=== PATIENT | female | born 1995 | race Caucasian/White ===

== ENCOUNTER 2018-09-12 12:07 | Day surgery (SDC) | payer OTHER ==
[2018-09-11 13:18] VITALS: BMI 24.5
--- NOTE | 2018-09-13 10:17 | OP ---
DATE OF PROCEDURE: 09/12/2018 PREPROCEDURE DIAGNOSES: 1. Intermittent loose stools with mucus. 2. Intermittent rectal bleeding. 3. Normal CBC. 4. Negative celiac serologies. POSTPROCEDURE DIAGNOSES: 1. Mild erythema sigmoid, likely bowel effect. No overt signs of Crohn's or proctitis or neoplasia. 2. Suspect bleeding from rectal outlet. PROCEDURE PERFORMED: Colonoscopy with biopsy of sigmoid colon. RECOMMENDATIONS: 1. Await pathology. 2. High-fiber diet. 3. Bentyl p.r.n. for cramping. 4. Followup in the office 1 month for biopsy results. ANESTHESIA: TIVA. DESCRIPTION OF PROCEDURE: The patient was informed of the risks, benefits, and possible complications of the endoscopy including perforation, bleeding, reaction to medication, aspiration, informed consent was obtained. The patient was brought into the endoscopy suite where she was sedated in gradual fashion. Once she was comfortable, a rectal exam was performed. Endoscope was advanced through the anal canal, through the colon, through the cecum. The cecum was identified by the ileocecal valve and the appendiceal orifice. There was no evidence of inflammatory bowel disease or inflammation, ulcers, erosions in the ileum, cecum, ascending, transverse, descending, or sigmoid colon. There was mild erythema in the sigmoid colon, it was felt somewhat related to bowel artifact. Biopsies were taken. The retroflexed views in the rectum were normal. The scope was removed. The patient tolerated the procedure well without complications. Job ID: [id number]
== END 2018-09-12 15:35 | disposition home or self-care (01) ==
LOC: SDC 12:07
PROVIDERS: ATTEND Internal Medicine Gastroenterology
PROC: 0DBN8ZX Excision of Sigmoid Colon, Via Natural or Artificial Opening Endoscopic, Diagnostic (ICD-10-PCS; principal; 2018-09-12)
DX: K62.5 Hemorrhage of anus and rectum (principal); R19.7 Diarrhea, unspecified; R19.5 Other fecal abnormalities; F41.9 Anxiety disorder, unspecified; Z79.899 Other long term (current) drug therapy; Z80.0 Family history of malignant neoplasm of digestive organs
CPT/HCPCS: 88305

== ENCOUNTER 2018-09-14 12:34 | Emergency (ER) | payer OTHER ==
--- NOTE | 2018-09-14 13:43 | RAD ---
FOUR VIEWS RIGHT KNEE: HISTORY: Fall with twisting injury. Pain. FINDINGS: Joint spaces are preserved. No fracture or malalignment. No joint effusion. IMPRESSION: No posttraumatic change. POS: BAKARI
== END 2018-09-14 14:08 | disposition home or self-care (01) ==
LOC: ERS 12:34
DX: S83.411A Sprain of medial collateral ligament of right knee, initial encounter (principal); F41.9 Anxiety disorder, unspecified; X50.1XXA Overexertion from prolonged static or awkward postures, initial encounter

== ENCOUNTER 2018-09-28 08:30 | Outpatient (CLI) | payer OTHER ==
--- NOTE | 2018-09-28 15:49 | RAD ---
SMALL BOWEL FOLLOW THROUGH: CLINICAL HISTORY: Irritable bowel syndrome, abdominal pain with intermittent diarrhea, 23-year-old female. FINDINGS: Rapid transit of contrast is noted, passing into the colon by 50 minute image. The contrast-opacifie d small bowel is normal in caliber and demonstrates an appropriate mucosal pattern. Opacified gastri c lumen is unremarkable. Spot fluoroscopic imaging performed which reveals no abnormal tethering or stricturing of the small bowel. IMPRESSION: 1. Rapid transit time with contrast entering the colon by 50 minute image. 2. No discrete small bowel pathology evident. POS: BAKARI
== END 2018-09-28 08:31 | disposition home or self-care (01) ==
LOC: RAD 08:30
PROVIDERS: ATTEND Internal Medicine Gastroenterology
DX: K58.0 Irritable bowel syndrome with diarrhea (principal)
CPT/HCPCS: 74250

== ENCOUNTER 2021-06-24 14:27 | Outpatient (CLI) | payer BC | END 2021-06-24 14:28 | disposition home or self-care (01) | LOC: BICCT 14:27 | PROVIDERS: ATTEND Family Medicine | DX: M47.816 Spondylosis without myelopathy or radiculopathy, lumbar region (principal); M45.7 Ankylosing spondylitis of lumbosacral region | CPT/HCPCS: 72100; 72131 ==